=== PATIENT | male | born 1980 | race African-American/Black ===

== ENCOUNTER 2017-08-29 09:39 | Emergency (ER) | payer SELFPAY ==
[2017-08-29] MEDS: ONDANSETRON PF 4 MG/2 ML VIAL. IV (10:20)
[2017-08-29] MEDS: DICYCLOMINE 20 MG/2 ML AMPUL. IM ×2 (10:20→12:35)
[2017-08-29] MEDS: LIDO:MAALOX 1:1 20 ML SINGLE DOSE. SWSW (10:20)
[2017-08-29 10:22] LABS: BASO # 0.1 x10^3/uL (0.0-0.2); BASO % 0 % (0-3); EOS % 0 % (0-3); HEMATOCRIT 42.7 % (39.0-53.0); HEMOGLOBIN 15.1 g/dL (13.0-17.5); LYMPH # 1.6 x10^3/uL (1.0-4.8); LYMPH % 12 % (24-48); MEAN CORPUSCULAR HEMOGLOBIN 35 pg (25-35); MEAN CORPUSCULAR HGB CONC 35 g/dL (31-37); MEAN CORPUSCULAR VOLUME 98 fL (79-100); MONO # 0.4 x10^3/uL (0.0-1.1); MONO % 3 % (0-9); NEUT # 11.5 x10^3uL (1.8-7.7); NEUT % 85 % (31-73); PLATELET COUNT 183 x10^3/uL (140-400); RED BLOOD COUNT 4.36 x10^6/uL (4.30-5.70); RED CELL DISTRIBUTION WIDTH 13.6 % (11.5-14.5); WHITE BLOOD COUNT 13.5 x10^3/uL (4.0-11.0)
[2017-08-29 10:24] LABS: ADD MAN DIFF? YES
[2017-08-29 11:03] LABS: % BANDS 3 % (0-9); % LYMPHS 11 % (24-48); % MONOS 3 % (0-10); % SEGS 83 % (35-66)
[2017-08-29 11:04] LABS: PLT ESTIMATE ADEQUATE (ADEQUATE)
[2017-08-29 11:10] LABS: BILIRUBIN,URINE NEGATIVE (NEG); CLARITY,URINE CLEAR; COLOR,URINE AMBER; GLUCOSE,URINE NEGATIVE (NEG); NITRITE,URINE NEGATIVE (NEG); PROTEIN,URINE 100 mg/dL (NEG-TRACE); UROBILINOGEN,URINE 0.2 mg/dL (0.2 mg/dL)
[2017-08-29 11:12] LABS: ANION GAP 14 (6-14); BLOOD UREA NITROGEN 11 mg/dL (8-26); BUN/CREATININE RATIO 10 (6-20); CALCIUM 9.5 mg/dL (8.5-10.1); CARBON DIOXIDE 26 mmol/L (21-32); CHLORIDE 104 mmol/L (98-107); CREATININE 1.1 mg/dL (0.7-1.3); GFR 92.2; GLUCOSE 117 mg/dL (70-99); SODIUM 144 mmol/L (136-145); SQUAMOUS EPITHELIAL CELL,UR OCC /LPF
[2017-08-29 11:13] LABS: BACTERIA,URINE FEW /HPF (0-FEW); RBC,URINE 0 /HPF (0-2)
[2017-08-29 11:17] LABS: ALBUMIN 4.3 g/dL (3.4-5.0); ALBUMIN/GLOBULIN RATIO 1.3 (1.0-1.7); ALK PHOS 69 U/L (46-116); ALT (SGPT) 22 U/L (16-63); AST (SGOT) 17 U/L (15-37); LIPASE 49 U/L (73-393); MAGNESIUM 1.9 mg/dL (1.8-2.4); TOTAL BILIRUBIN 0.6 mg/dL (0.2-1.0); TOTAL PROTEIN 7.7 g/dL (6.4-8.2)
[2017-08-29] MEDS: IV NORMAL SALINE 1000ML BAG 1,000 ML IV (12:32)
[2017-08-29] MEDS: HALOPERIDOL LACTATE 5 MG/ML VIAL. IM (13:25)
[2017-08-29] MEDS: IOHEXOL 300 MG/ML 100ML VIAL. IV (13:40)
[2017-08-29] MEDS ORDERED: CONTRAST GIVEN. MC (13:45)
== END 2017-08-29 15:14 | disposition home or self-care (01) ==
LOC: ER 09:39
DX: K21.9 Gastro-esophageal reflux disease without esophagitis (principal); Z87.19 Personal history of other diseases of the digestive system; Z90.49 Acquired absence of other specified parts of digestive tract
CPT/HCPCS: 36415; 74177; 80053; 81001; 83690; 83735; 85007; 85025; 87086; 93005; 96361; 96372; 96374; 99285-25; J0500; J1630; J2405; J7030; Q9967

== ENCOUNTER 2017-11-26 09:21 | Emergency (ER) | payer SELFPAY ==
[~2017-11-26] VITALS: Ht 177.8 cm; Wt 86.2 kg
[~2017-11-26 09:21] MED LIST: DICY20TA3 PO; HYDR-971 PO; Hydrocodone/Acetaminophen PO; OMEP20TA63 PO; ONDA4TAB10 PO; ONDA4TAB7 PO
[2017-11-26] MEDS ORDERED: PROCHLORPERAZINE 10 MG/2 ML VIAL. IV ONE (09:30)
[2017-11-26] MEDS ORDERED: diphenhydrAMINE 50 MG/ML VIAL IVP ONE (09:30)
[2017-11-26] MEDS ORDERED: MORPHINE SULFATE 4 MG/ML VIAL. IV ONE ×3 (09:30→13:30)
[2017-11-26] MEDS ORDERED: FAMOTIDINE 20 MG/2 ML VIAL IVP ONE (09:30)
[2017-11-26] MEDS ORDERED: IV NORMAL SALINE 1000ML BAG 1,000 ML IV ONE ×2 (09:45→11:30)
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
[2017-11-26 11:33] LABS: BASO % 0 % (0-3); EOS % 0 % (0-3); HEMOGLOBIN 15.1 g/dL (13.0-17.5); LYMPH # 1.4 x10^3/uL (1.0-4.8); LYMPH % 11 % (24-48); MEAN CORPUSCULAR HEMOGLOBIN 33 pg (25-35); MEAN CORPUSCULAR HGB CONC 34 g/dL (31-37); MEAN CORPUSCULAR VOLUME 99 fL (79-100); MONO # 0.4 x10^3/uL (0.0-1.1); MONO % 3 % (0-9); NEUT # 11.1 x10^3uL (1.8-7.7); NEUT % 86 % (31-73); PLATELET COUNT 188 x10^3/uL (140-400); RED BLOOD COUNT 4.54 x10^6/uL (4.30-5.70); RED CELL DISTRIBUTION WIDTH 14.3 % (11.5-14.5); WHITE BLOOD COUNT 12.9 x10^3/uL (4.0-11.0)
[2017-11-26 11:45] LABS: CALCIUM 9.7 mg/dL (8.5-10.1); CREATININE 1.2 mg/dL (0.7-1.3); GFR 82.9; POTASSIUM 4.2 mmol/L (3.5-5.1)
[2017-11-26] MEDS ORDERED: IOHEXOL 300 MG/ML 100ML VIAL. IV ONE (11:45)
[2017-11-26] MEDS ORDERED: CONTRAST GIVEN. MC PRN (11:45)
[2017-11-26 11:51] LABS: ALBUMIN 4.5 g/dL (3.4-5.0); DIRECT BILIRUBIN 0.1 mg/dL (0.0-0.2); TOTAL BILIRUBIN 0.6 mg/dL (0.2-1.0)
--- NOTE | 2017-11-26 12:54 | RAD ---
CT Abdomen and Pelvis With Intravenous Contrast: History: Abdominal pain. Nausea, emesis. Comparison: CT abdomen pelvis August 29, 2017. Technique: After administration of intravenous contrast, 75 mL Omnipaque-300, CT of the abdomen and pelvis was performed. Exposure: One or more of the following individualized dose reduction techniques were utilized for this examination: 1. Automated exposure control 2. Adjustment of the mA and/or kV according to patient size 3. Use of iterative reconstruction technique Findings: Evaluation of enteric structures may be warranted by lack of oral contrast. Liver, spleen, kidneys, gallbladder, and bilateral adrenal glands are unremarkable. Bilateral kidneys enhance symmetrically. No bowel obstruction or inflammation is identified. Appendix is absent. Urinary bladder is unremarkable. No free air or free fluid is seen in the abdomen or pelvis. Impression: 1. No acute abnormality identified in the abdomen or pelvis. Electronically signed by: Niko Bowling MD (11/26/2017 12:50 PM) [facility] [place]
[2017-11-26 13:07] LABS: BILIRUBIN,URINE NEGATIVE (NEG); CLARITY,URINE CLEAR; COLOR,URINE YELLOW; NITRITE,URINE NEGATIVE (NEG); PH,URINE 8.5; PROTEIN,URINE 30 mg/dL (NEG-TRACE)
[2017-11-26 13:15] LABS: % BANDS 4 % (0-9); % BASOS 1 % (0-3); % LYMPHS 6 % (24-48); % MONOS 2 % (0-10); % SEGS 87 % (35-66); PLT ESTIMATE ADEQUATE (ADEQUATE)
[2017-11-26] MEDS ORDERED: SUCR1TAB35 PO (13:21)
[2017-11-26] MEDS ORDERED: METO10TA81 PO (13:21)
[2017-11-26] MEDS ORDERED: HYDR-971 PO (13:21)
[2017-11-26 13:26] LABS: BACTERIA,URINE FEW /HPF (0-FEW); SQUAMOUS EPITHELIAL CELL,UR OCC /LPF
[2017-11-26 13:27] LABS: RBC,URINE 0 /HPF (0-2)
[2017-11-26 13:29] VITALS: BP 119/58
== END 2017-11-26 14:00 | disposition home or self-care (01) ==
LOC: ER 09:21
DX: R11.2 Nausea with vomiting, unspecified (principal); R10.13 Epigastric pain; K21.9 Gastro-esophageal reflux disease without esophagitis; Z90.89 Acquired absence of other organs
CPT/HCPCS: 36415; 74177; 80048; 80076; 81001; 83690; 85007; 85025; 96361; 96374; 96375; 96376; 99285; J0780; J1200; J2270; J7030; Q9967; S0028

== ENCOUNTER 2018-01-03 11:01 | Emergency (ER) | payer SELFPAY ==
[~2018-01-03] VITALS: Ht 177.8 cm; Wt 86.2 kg
[~2018-01-03 11:01] MED LIST changes: +METO10TA81 PO; +SUCR1TAB35 PO
[2018-01-03] MEDS ORDERED: ONDANSETRON PF 4 MG/2 ML VIAL. IV ONE (11:45)
[2018-01-03] MEDS ORDERED: IV NORMAL SALINE 1000ML BAG 1,000 ML IV ONE (11:45)
[2018-01-03] MEDS ORDERED: fentaNYL PF VIAL 100 MCG/2 ML VIAL IV ONE (11:45)
[2018-01-03 12:26] LABS: CALCIUM 10.4 mg/dL (8.5-10.1); CREATININE 1.2 mg/dL (0.7-1.3); GFR 82.9; POTASSIUM 3.8 mmol/L (3.5-5.1)
[2018-01-03 12:29] LABS: BASO # 0.1 x10^3/uL (0.0-0.2); BASO % 1 % (0-3); EOS % 0 % (0-3); HEMATOCRIT 45.4 % (39.0-53.0); HEMOGLOBIN 15.5 g/dL (13.0-17.5); LYMPH # 1.5 x10^3/uL (1.0-4.8); LYMPH % 9 % (24-48); MEAN CORPUSCULAR HEMOGLOBIN 34 pg (25-35); MEAN CORPUSCULAR HGB CONC 34 g/dL (31-37); MEAN CORPUSCULAR VOLUME 98 fL (79-100); MONO # 0.7 x10^3/uL (0.0-1.1); MONO % 4 % (0-9); NEUT # 13.6 x10^3uL (1.8-7.7); NEUT % 86 % (31-73); PLATELET COUNT 179 x10^3/uL (140-400); RED BLOOD COUNT 4.63 x10^6/uL (4.30-5.70); RED CELL DISTRIBUTION WIDTH 13.8 % (11.5-14.5); WHITE BLOOD COUNT 15.8 x10^3/uL (4.0-11.0)
--- NOTE | 2018-01-03 12:30 | PHYS DOC ---
Past Medical History Past Medical History: GERD, Other Additional Past Medical Histor: gastric ulcers Past Surgical History: Appendectomy Alcohol Use: None Drug Use: Marijuana Adult General Chief Complaint Chief Complaint: NAUSEA/VOMITING/DIARRHA HPI HPI 37-year-old male presents to ER with complaints of N/V which started last night reporting he has had multiple episodes of vomiting yesterday and today. Patient denies any fever or chills, diarrhea, or urinary symptoms. Patient reports he was in the ER 2 weeks ago and diagnosed with stomach ulcers. Patient reports he is having lower abdominal pain since yesterday with increased pain today. Patient denies any bloody or tarry dark stools. Per patient he was seen in the ER on 11/26 and had labs and a CT done. Per his records he was diagnosed with gastritis and sent home on Reglan, [place], sucralfate. He was informed to increase Pepcid to BID. Pt reports he only has the sucralfate left at home. Review of Systems Review of Systems Constitutional: Denies fever or chills. Denies fatigue Eyes: Denies change in visual acuity, redness, or eye pain [] HENT: Denies nasal congestion or sore throat [] Respiratory: Denies cough or shortness of breath [] Cardiovascular: Denies chest pain or palpitations GI: Reports abdominal pain, nausea, vomiting. Denies bloody stools or diarrhea [ ] : Denies dysuria or hematuria. Denies incontinence Musculoskeletal: Denies back/neck pain or joint pain [] Integument: Denies rash or skin lesions [] Neurologic: Denies headache, focal weakness or sensory changes [] All other systems were reviewed and found to be within normal limits, except as documented in this note. Current Medications Current Medications Current Medications Medications (Trade) Dose Ordered Sig/Deny Start Time Stop Time Status Last Admin Dose Admin Dicyclomine HCl (Bentyl) 20 mg 1X ONCE 01/03/18 12:45 01/03/18 12:46 DC 01/03/18 12:56 20 MG Famotidine (Pepcid Vial) 20 mg 1X ONCE 01/03/18 13:45 01/03/18 13:46 DC 01/03/18 13:49 20 MG Fentanyl Citrate (Fentanyl 2ml Vial) 50 mcg 1X ONCE 01/03/18 11:45 01/03/18 11:47 DC 01/03/18 12:18 50 MCG Morphine Sulfate (Morphine Sulfate) 4 mg 1X ONCE 01/03/18 13:45 01/03/18 13:46 DC 01/03/18 13:49 4 MG Ondansetron HCl (Zofran) 4 mg 1X ONCE 01/03/18 11:45 01/03/18 11:47 DC 01/03/18 12:18 4 MG Sodium Chloride 1,000 ml @ 1,000 mls/hr 1X ONCE 01/03/18 11:45 01/03/18 12:44 DC 01/03/18 12:18 1,000 MLS/HR Allergies Allergies Allergies Coded Allergies Type Severity Reaction Last Updated Verified No Known Drug Allergies 06/30/14 No Physical Exam Physical Exam Constitutional: Well developed, well nourished, mild distress on initial exam with patient clutching mid abdomen-he is anxious and at times flails around on ER cart, non-toxic appearance. [] HENT: Normocephalic, atraumatic, bilateral ears normal, mucous membranes pink/ moist, no oral exudates, nose normal. [] Eyes: PERRLA, no nystagmus, conjunctiva normal, no discharge. [] Neck: Normal range of motion, no tenderness, supple, no stridor. [] Cardiovascular:Heart rate regular rhythm, no murmur [] Lungs & Thorax: Bilateral breath sounds clear to auscultation. Resp. equal/ nonlabored Abdomen: Bowel sounds normal, soft/nondistended, diffuse tenderness in mid umbilical and lower abdomen with no focal area or rebound tenderness, no masses Skin: Warm, dry, no erythema, no rash. [] Back: No tenderness, no CVA tenderness. [] Extremities: No tenderness, no cyanosis, no clubbing, ROM intact, no edema. [] Neurologic: Alert and oriented X 3, normal motor function, normal sensory function, no focal deficits noted. [] Psychologic: Affect normal, judgement normal, mood normal. [] Current Patient Data Vital Signs Vital Signs Date Time Temp Pulse Resp B/P (MAP) Pulse Ox O2 Delivery O2 Flow Rate FiO2 01/03/18 13:15 68 134/63 (86) 100 Room Air 01/03/18 11:10 98.5 22 98.5 Lab Values Laboratory Tests Test 01/03/18 12:05 01/03/18 12:30 White Blood Count 15.8 x10^3/uL (4.0-11.0) H Red Blood Count 4.63 x10^6/uL (4.30-5.70) Hemoglobin 15.5 g/dL (13.0-17.5) Hematocrit 45.4 % (39.0-53.0) Mean Corpuscular Volume 98 fL (79-100) Mean Corpuscular Hemoglobin 34 pg (25-35) Mean Corpuscular Hemoglobin Concent 34 g/dL (31-37) Red Cell Distribution Width 13.8 % (11.5-14.5) Platelet Count 179 x10^3/uL (140-400) Neutrophils (%) (Auto) 86 % (31-73) H Lymphocytes (%) (Auto) 9 % (24-48) L Monocytes (%) (Auto) 4 % (0-9) Eosinophils (%) (Auto) 0 % (0-3) Basophils (%) (Auto) 1 % (0-3) Neutrophils # (Auto) 13.6 x10^3uL (1.8-7.7) H Lymphocytes # (Auto) 1.5 x10^3/uL (1.0-4.8) Monocytes # (Auto) 0.7 x10^3/uL (0.0-1.1) Eosinophils # (Auto) 0.0 x10^3/uL (0.0-0.7) Basophils # (Auto) 0.1 x10^3/uL (0.0-0.2) Segmented Neutrophils % 92 % (35-66) H Lymphocytes % 5 % (24-48) L Monocytes % 3 % (0-10) Platelet Estimate Adequate (ADEQUATE) Sodium Level 142 mmol/L (136-145) Potassium Level 3.8 mmol/L (3.5-5.1) Chloride Level 103 mmol/L (98-107) Carbon Dioxide Level 24 mmol/L (21-32) Anion Gap 15 (6-14) H Blood Urea Nitrogen 13 mg/dL (8-26) Creatinine 1.2 mg/dL (0.7-1.3) Estimated GFR (Cockcroft-Gault) 82.9 BUN/Creatinine Ratio 11 (6-20) Glucose Level 118 mg/dL (70-99) H Calcium Level 10.4 mg/dL (8.5-10.1) H Magnesium Level 1.6 mg/dL (1.8-2.4) L Total Bilirubin 0.6 mg/dL (0.2-1.0) Aspartate Amino Transferase (AST) 16 U/L (15-37) Alanine Aminotransferase (ALT) 26 U/L (16-63) Alkaline Phosphatase 73 U/L (46-116) Total Protein 8.0 g/dL (6.4-8.2) Albumin 4.5 g/dL (3.4-5.0) Albumin/Globulin Ratio 1.3 (1.0-1.7) Lipase 73 U/L (73-393) Urine Opiates Screen Neg (NEG) Urine Methadone Screen Neg (NEG) Urine Barbiturates Neg (NEG) Urine Phencyclidine Screen Neg (NEG) Urine Amphetamine/Methamphetamine Neg (NEG) Urine Benzodiazepines Screen Neg (NEG) Urine Cocaine Screen Neg (NEG) Urine Cannabinoids Screen Pos (NEG) Urine Ethyl Alcohol Neg (NEG) Laboratory Tests 01/03/18 12:05 Laboratory Tests 01/03/18 12:05 EKG EKG [] Radiology/Procedures Radiology/Procedures [] Course & Med Decision Making Course & Med Decision Making 1325: On reevaluation patient reports he has had some improvement in pain and he has had no additional vomiting episodes. Discussed positive cannabinoids on his UDS and cyclic vomiting and patient is aware of this diagnosis as he has been dx'd in past with this. Discussed test results with patient with WBCs elevated 15.8 no bands- which may be r/t stress as pt was actively vomiting and anxious on initial exam/lab draw. Pt had normal limits lipase at 73. Patient was given IV fluids and doses of morphine, Bentyl, Zofran, and Pepcid. Patient reports he still has sucralfate at home but is out of his other medications that were prescribed during last ER visit. Patient requesting pain medication for home discharge will provide prescription for Bentyl with education that patient needs to avoid cannabinoids and follow-up with GI for further care. Will provide prescription for Reglan and patient was advised during his previous ER visit to increase his Pepcid dose to twice a day. Will provide pt with GI referral info with discharge paperwork. Discharge instructions were discussed and education provided on signs and symptoms to return to ER for. Deon Disclaimer Dragon Disclaimer This electronic medical record was generated, in whole or in part, using a voice recognition dictation system. Departure Departure Impression: Primary Impression: Abdominal pain Additional Impression: Nausea & vomiting Disposition: 01 HOME, SELF-CARE Condition: STABLE Referrals: NO PCP (PCP) ANIL MEHTA MD Gastrointestinal doctor to follow-up with Patient Instructions: Abdominal Pain, Nausea and Vomiting Additional Instructions: With ongoing gastrointestinal issues you should follow-up with a GI doctor in the next 2-3 days. Avoid spicy or acidic food. Avoid marijuana use. Scripts Dicyclomine Hcl (DICYCLOMINE HCL) 10 Mg Capsule 10 MG PO QID PRN for abdominal pain, #12 CAP 0 Refills Prov: PREMA ESPINOZA APRN 01/03/18 Metoclopramide Hcl (REGLAN) 10 Mg Tablet 10 MG PO BIDAC, #14 TAB 0 Refills Prov: PREMA ESPINOZA APRN 01/03/18 Problem Qualifiers PREMA ESPINOZA APRN Jan 03, 2018 12:30
[2018-01-03 12:33] LABS: ALBUMIN 4.5 g/dL (3.4-5.0); ALBUMIN/GLOBULIN RATIO 1.3 (1.0-1.7); MAGNESIUM 1.6 mg/dL (1.8-2.4); TOTAL BILIRUBIN 0.6 mg/dL (0.2-1.0)
[2018-01-03] MEDS ORDERED: MORPHINE SULFATE 4 MG/ML VIAL. IV ONE ×2 (12:45→13:45)
[2018-01-03] MEDS ORDERED: DICYCLOMINE 20 MG/2 ML AMPUL. IM ONE (12:45)
[2018-01-03 12:48] LABS: BARBITURATES NEG (NEG); BENZODIAZEPINES NEG (NEG); CANNABINOIDS POS (NEG); COCAINE NEG (NEG); METHADONE NEG (NEG); OPIATES NEG (NEG); PHENCYCLIDINE NEG (NEG)
[2018-01-03 12:50] LABS: AMPHETAMINE/METHAMPHETAMINE NEG (NEG)
[2018-01-03 13:15] VITALS: BP 134/63
[2018-01-03] MEDS ORDERED: FAMOTIDINE 20 MG/2 ML VIAL IVP ONE (13:45)
[2018-01-03] MEDS ORDERED: DICY10CA3 PO (13:59)
[2018-01-03] MEDS ORDERED: METO10TA81 PO (13:59)
[2018-01-03 14:02] LABS: % LYMPHS 5 % (24-48); % MONOS 3 % (0-10); % SEGS 92 % (35-66)
[2018-01-03 14:03] LABS: PLT ESTIMATE ADEQUATE (ADEQUATE)
== END 2018-01-03 14:24 | disposition home or self-care (01) ==
LOC: ER 11:01
DX: R11.2 Nausea with vomiting, unspecified (principal); R10.31 Right lower quadrant pain; R10.32 Left lower quadrant pain; R10.33 Periumbilical pain; K21.9 Gastro-esophageal reflux disease without esophagitis; Z90.89 Acquired absence of other organs
CPT/HCPCS: 36415; 80053; 80307; 83690; 83735; 85007; 85025; 96361; 96372; 96374; 96375; 96376; 99285; J0500; J2270; J2405; J3010; J7030; S0028; G0479

== ENCOUNTER 2018-04-30 10:09 | Emergency (ER) | payer SELFPAY ==
[~2018-04-30] VITALS: Ht 177.8 cm; Wt 86.2 kg
[~2018-04-30 10:09] MED LIST changes: +CAPS42.510 TP; +DICY10CA3 PO; +HYDR-3164 PO; -HYDR-971 PO; +HYOS0.1264 PO; +PROC10TA57 PO
[2018-04-30] MEDS ORDERED: IV NORMAL SALINE 1000ML BAG 1,000 ML IV ONE ×2 (11:30→13:15)
--- NOTE | 2018-04-30 12:14 | PHYS DOC ---
Past Medical History Past Medical History: GERD, Other Additional Past Medical Histor: gastric ulcers Past Surgical History: Appendectomy Smoking: Cigarettes Alcohol Use: None Drug Use: Marijuana Adult General Chief Complaint Chief Complaint: ABDOMINAL PAIN HPI HPI Patient is a 37-year-old female who presents to the emergency department for evaluation. The patient was seen in the emergency department about 2 days ago, for abdominal pain and vomiting, and has had similar, almost monthly episodes of the same. He states he has not been able to hold on the medication which he was prescribed after his last ER visit. He has been seen in this emergency department several times over the past few months for similar symptoms. He does not currently have a GI doctor but states he has a history of ulcers. His emesis has been nonbloody. He does have a history of marijuana use, but states he has not used since prior to his prior ER visit. He has not had any diarrhea, or black or bloody stools. His abdominal pain is generalized. There are no alleviating or exacerbating factors to the patient's symptoms otherwise. Review of Systems Review of Systems Constitutional: Denies fever or chills [] Eyes: Denies change in visual acuity, redness, or eye pain [] HENT: Denies nasal congestion or sore throat [] Respiratory: Denies cough or shortness of breath [] Cardiovascular: The patient denies any shortness of breath, chest pain, palpitations, or orthopnea [] GI: No additional information not addressed in HPI [] : Denies dysuria or hematuria [] Musculoskeletal: Denies back pain or joint pain [] Integument: Denies rash or skin lesions [] Neurologic: Denies headache, focal weakness or sensory changes [] Endocrine: Denies polyuria or polydipsia [] All other systems were reviewed and found to be within normal limits, except as documented in this note. Current Medications Current Medications Current Medications Medications (Trade) Dose Ordered Sig/Deny Start Time Stop Time Status Last Admin Dose Admin Haloperidol Lactate (Haldol Inj) 5 mg 1X ONCE 04/30/18 12:30 04/30/18 12:31 DC 04/30/18 12:20 5 MG Info (CONTRAST GIVEN -- Rx MONITORING) 1 each PRN DAILY PRN 04/30/18 12:30 05/02/18 12:29 Iohexol (Omnipaque 300 Mg/ml) 75 ml 1X ONCE 04/30/18 12:30 04/30/18 12:31 DC 04/30/18 12:42 75 ML Lorazepam (Ativan) 1 mg 1X ONCE 04/30/18 12:30 04/30/18 12:31 DC 04/30/18 12:21 1 MG Sodium Chloride 1,000 ml @ 1,000 mls/hr 1X ONCE 04/30/18 13:15 04/30/18 14:14 04/30/18 13:09 1,000 MLS/HR Allergies Allergies Allergies Coded Allergies Type Severity Reaction Last Updated Verified No Known Drug Allergies 06/30/14 No Physical Exam Physical Exam PHYSICAL EXAM: CONSTITUTIONAL: Well developed, well nourished HEAD: normocephalic, atraumatic EENT: PERRL, EOMI. Conjunctivae normal color, sclerae non-icteric; moist mucous membranes. NECK: Supple, non-tender; no meningismus. LUNGS: Lungs CTA, breathing even and unlabored. Normal air movement. HEART: Regular rate and rhythm, no murmur CHEST: No deformity; non-tender ABDOMEN: The abdomen is soft, there is mild tenderness to palpation, most prominent in the epigastric area, and right midabdomen, Valdivia sign is absent, there is no rebound or guarding, bowel sounds are present, the remainder the abdomen is soft and non-tender, no masses or bruits. EXTREM: Normal ROM; no deformity, no calf tenderness. Normal pulses palpable in all extremities. There is no pedal edema. SKIN: No rash; no diaphoresis NEURO: Alert; normal speech and cognition; CN's grossly intact; strength grossly intact without focal deficit. BACK: No CVA TTP. Current Patient Data Vital Signs Vital Signs Date Time Temp Pulse Resp B/P (MAP) Pulse Ox O2 Delivery O2 Flow Rate FiO2 04/30/18 10:47 99.1 69 24 140/78 (98) 100 Room Air 99.1 Lab Values Laboratory Tests Test 04/30/18 12:20 04/30/18 13:15 Urine Collection Type Unknown Urine Color Yellow Urine Clarity Clear Urine pH 8.5 Urine Specific [place] 1.025 Urine Protein Negative mg/dL (NEG-TRACE) Urine Glucose (UA) Negative mg/dL (NEG) Urine Ketones (Stick) >=80 mg/dL (NEG) Urine Blood Negative (NEG) Urine Nitrite Negative (NEG) Urine Bilirubin Negative (NEG) Urine Urobilinogen Dipstick 1.0 mg/dL (0.2 mg/dL) Urine Leukocyte Esterase Negative (NEG) Urine RBC 0 /HPF (0-2) Urine WBC 0 /HPF (0-4) Urine Bacteria 0 /HPF (0-FEW) Urine Mucus Slight /LPF Urine Opiates Screen Neg (NEG) Urine Methadone Screen Neg (NEG) Urine Barbiturates Neg (NEG) Urine Phencyclidine Screen Neg (NEG) Urine Amphetamine/Methamphetamine Neg (NEG) Urine Benzodiazepines Screen Neg (NEG) Urine Cocaine Screen Neg (NEG) Urine Cannabinoids Screen Pos (NEG) Urine Ethyl Alcohol Neg (NEG) White Blood Count 8.2 x10^3/uL (4.0-11.0) Red Blood Count 4.18 x10^6/uL (4.30-5.70) L Hemoglobin 13.6 g/dL (13.0-17.5) Hematocrit 41.1 % (39.0-53.0) Mean Corpuscular Volume 98 fL (79-100) Mean Corpuscular Hemoglobin 33 pg (25-35) Mean Corpuscular Hemoglobin Concent 33 g/dL (31-37) Red Cell Distribution Width 13.6 % (11.5-14.5) Platelet Count 159 x10^3/uL (140-400) Neutrophils (%) (Auto) 72 % (31-73) Lymphocytes (%) (Auto) 19 % (24-48) L Monocytes (%) (Auto) 9 % (0-9) Eosinophils (%) (Auto) 0 % (0-3) Basophils (%) (Auto) 0 % (0-3) Neutrophils # (Auto) 5.9 x10^3uL (1.8-7.7) Lymphocytes # (Auto) 1.5 x10^3/uL (1.0-4.8) Monocytes # (Auto) 0.7 x10^3/uL (0.0-1.1) Eosinophils # (Auto) 0.0 x10^3/uL (0.0-0.7) Basophils # (Auto) 0.0 x10^3/uL (0.0-0.2) Sodium Level 137 mmol/L (136-145) Potassium Level 3.4 mmol/L (3.5-5.1) L Chloride Level 103 mmol/L (98-107) Carbon Dioxide Level 24 mmol/L (21-32) Anion Gap 10 (6-14) Blood Urea Nitrogen 11 mg/dL (8-26) Creatinine 0.9 mg/dL (0.7-1.3) Estimated GFR (Cockcroft-Gault) 115.5 BUN/Creatinine Ratio 12 (6-20) Glucose Level 103 mg/dL (70-99) H Calcium Level 8.6 mg/dL (8.5-10.1) Total Bilirubin 0.7 mg/dL (0.2-1.0) Aspartate Amino Transferase (AST) 16 U/L (15-37) Alanine Aminotransferase (ALT) 23 U/L (16-63) Alkaline Phosphatase 67 U/L (46-116) Total Protein 6.4 g/dL (6.4-8.2) Albumin 3.4 g/dL (3.4-5.0) Albumin/Globulin Ratio 1.1 (1.0-1.7) Lipase 66 U/L (73-393) L Laboratory Tests 04/30/18 13:15 Laboratory Tests 04/30/18 13:15 EKG EKG [Normal sinus rhythm a rate of 72 beats for minute, normal axis, normal intervals. There are no acute ischemic ST/T changes.] Radiology/Procedures Radiology/Procedures [PROCEDURE: CT ABD PELV W/ IV CONTRST ONLY CT ABD PELV W/ IV CONTRST ONLY Indication: Abdominal pain. Nausea and vomiting. Exposure: One or more of the following individualized dose reduction techniques were utilized for this examination: 1. Automated exposure control 2. Adjustment of the mA and/or kV according to patient size 3. Use of iterative reconstruction technique. Comparison: November 26, 2017 Contrast: Intravenous contrast was given. No oral contrast per request. FINDINGS: Lower thorax: Lung bases are clear. Liver: Area of hypodensity in the anterior liver measures about 2 cm, at the falciform ligament, a typical location for focal fatty deposition. This was seen on prior studies although slightly more prominent today. Spleen: Unremarkable Pancreas: Unremarkable Adrenals: No evidence of mass. Kidneys: No obvious mass. Urinary tracts: No hydronephrosis. Gallbladder: No calcified stone Lymph nodes: No significant enlargement Vessels: Aorta is nonaneurysmal. GI tract: Apparent mild wall thickening of the descending and sigmoid colon's, may just be due to lack of distention. No evidence of bowel obstruction. There are surgical clips in the right abdomen. Appendix is not clearly seen. Reproductive organs:No evidence of mass. Urinary bladder: Mild wall thickening, could be due to lack of distention. Peritoneum: No evidence of pneumoperitoneum. No free fluid. Abdominal wall:Unremarkable Spine: Transitional anatomy at the lumbosacral junction. Bones: No destructive process identified. External Soft Tissue: No acute findings. IMPRESSION: 1. No definite acute abnormality. 2. Wall thickening of the descending and sigmoid colon may just be due to the lack of distention or oral contrast, but correlate for colitis. 3. Focal hypodensity in the anterior liver at the region of the falciform ligament is commonly due to fatty deposition. Note this does appear slightly more prominent than on prior studies, therefore further evaluation such as with MRI could be of benefit.] Course & Med Decision Making Course & Med Decision Making Pertinent Labs and Imaging studies reviewed. (See chart for details) [2:10 PM: The patient's condition remains stable.] He is feeling significantly better after being given an medication. He states he has been having a lot of stress in his relationship because of health problems in a family member. He has not had any further vomiting since being given medication. Out discussed importance of close outpatient follow-up with GI, the need for continuing his PPI, I will give him an ODT and liver trimmer medication, and we discussed return precautions in detail. The importance of marijuana abscess was discussed as well. Did discuss the CT findings with the patient and the need for further close outpatient follow-up. Clinical suspicion for colitis is very low. Dragon Disclaimer Dragon Disclaimer This electronic medical record was generated, in whole or in part, using a voice recognition dictation system. Departure Departure Impression: Primary Impression: Nausea & vomiting Additional Impression: Abdominal pain Disposition: 01 HOME, SELF-CARE Condition: STABLE Referrals: ANIL MEHTA MD Patient Instructions: Abdominal Pain, Cyclic Vomiting Syndrome, Nausea and Vomiting Additional Instructions: Further evaluation and it support engineer for your symptoms is critically important. Please call to schedule appointment as instructed. There was a small spot on your liver that showed up on the CT scan today which would require further follow-up with an outpatient MRI. Please contact your primary care provider or the it support engineer as scheduled follow-up. Stopping the use of marijuana may help improve her reduce your symptoms. Scripts Ondansetron Hcl (ZOFRAN) 4 Mg Tablet 1 TAB PO Q6HRS PRN for NAUSEA/VOMITING, #20 TAB Please dispense oral dissolving tablets. Prov: DEBI PEREA MD 04/30/18 Problem Qualifiers DEBI PEREA MD Apr 30, 2018 12:14
[2018-04-30] MEDS ORDERED: IOHEXOL 300 MG/ML 100ML VIAL. IV ONE (12:30)
[2018-04-30] MEDS ORDERED: CONTRAST GIVEN. MC PRN (12:30)
[2018-04-30] MEDS ORDERED: HALOPERIDOL LACTATE 5 MG/ML VIAL. IVP ONE (12:30)
[2018-04-30 12:34] LABS: BILIRUBIN,URINE NEGATIVE (NEG); CLARITY,URINE CLEAR; COLOR,URINE YELLOW; NITRITE,URINE NEGATIVE (NEG); PH,URINE 8.5; PROTEIN,URINE NEGATIVE (NEG-TRACE)
[2018-04-30 12:41] LABS: BACTERIA,URINE 0 /HPF (0-FEW); BARBITURATES NEG (NEG); BENZODIAZEPINES NEG (NEG); CANNABINOIDS POS (NEG); COCAINE NEG (NEG); METHADONE NEG (NEG); OPIATES NEG (NEG); PHENCYCLIDINE NEG (NEG); RBC,URINE 0 /HPF (0-2); WBC,URINE 0 /HPF (0-4)
[2018-04-30 12:45] LABS: AMPHETAMINE/METHAMPHETAMINE NEG (NEG)
--- NOTE | 2018-04-30 12:56 | EKG ---
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
--- NOTE | 2018-04-30 13:07 | RAD ---
CT ABD PELV W/ IV CONTRST ONLY Indication: Abdominal pain. Nausea and vomiting. Exposure: One or more of the following individualized dose reduction techniques were utilized for this examination: 1. Automated exposure control 2. Adjustment of the mA and/or kV according to patient size 3. Use of iterative reconstruction technique. Comparison: November 26, 2017 Contrast: Intravenous contrast was given. No oral contrast per request. FINDINGS: Lower thorax: Lung bases are clear. Liver: Area of hypodensity in the anterior liver measures about 2 cm, at the falciform ligament, a typical location for focal fatty deposition. This was seen on prior studies although slightly more prominent today. Spleen: Unremarkable Pancreas: Unremarkable Adrenals: No evidence of mass. Kidneys: No obvious mass. Urinary tracts: No hydronephrosis. Gallbladder: No calcified stone Lymph nodes: No significant enlargement Vessels: Aorta is nonaneurysmal. GI tract: Apparent mild wall thickening of the descending and sigmoid colon's, may just be due to lack of distention. No evidence of bowel obstruction. There are surgical clips in the right abdomen. Appendix is not clearly seen. Reproductive organs:No evidence of mass. Urinary bladder: Mild wall thickening, could be due to lack of distention. Peritoneum: No evidence of pneumoperitoneum. No free fluid. Abdominal wall:Unremarkable Spine: Transitional anatomy at the lumbosacral junction. Bones: No destructive process identified. External Soft Tissue: No acute findings. IMPRESSION: 1. No definite acute abnormality. 2. Wall thickening of the descending and sigmoid colon may just be due to the lack of distention or oral contrast, but correlate for colitis. 3. Focal hypodensity in the anterior liver at the region of the falciform ligament is commonly due to fatty deposition. Note this does appear slightly more prominent than on prior studies, therefore further evaluation such as with MRI could be of benefit. Electronically signed by: Niko Webb MD (04/30/2018 1:02 PM) [id number]
[2018-04-30 13:24] LABS: BASO % 0 % (0-3); EOS % 0 % (0-3); HEMATOCRIT 41.1 % (39.0-53.0); HEMOGLOBIN 13.6 g/dL (13.0-17.5); LYMPH # 1.5 x10^3/uL (1.0-4.8); LYMPH % 19 % (24-48); MEAN CORPUSCULAR HEMOGLOBIN 33 pg (25-35); MEAN CORPUSCULAR HGB CONC 33 g/dL (31-37); MEAN CORPUSCULAR VOLUME 98 fL (79-100); MONO # 0.7 x10^3/uL (0.0-1.1); MONO % 9 % (0-9); NEUT # 5.9 x10^3uL (1.8-7.7); NEUT % 72 % (31-73); PLATELET COUNT 159 x10^3/uL (140-400); RED BLOOD COUNT 4.18 x10^6/uL (4.30-5.70); RED CELL DISTRIBUTION WIDTH 13.6 % (11.5-14.5); WHITE BLOOD COUNT 8.2 x10^3/uL (4.0-11.0)
[2018-04-30 13:32] LABS: CALCIUM 8.6 mg/dL (8.5-10.1); CREATININE 0.9 mg/dL (0.7-1.3); GFR 115.5; POTASSIUM 3.4 mmol/L (3.5-5.1)
[2018-04-30 13:38] LABS: ALBUMIN 3.4 g/dL (3.4-5.0); ALBUMIN/GLOBULIN RATIO 1.1 (1.0-1.7); TOTAL BILIRUBIN 0.7 mg/dL (0.2-1.0); TOTAL PROTEIN 6.4 g/dL (6.4-8.2)
[2018-04-30 14:20] VITALS: BP 134/84
[2018-04-30] MEDS ORDERED: ONDA4TAB7 PO (14:26)
== END 2018-04-30 15:14 | disposition home or self-care (01) ==
LOC: ER 10:09
DX: R11.2 Nausea with vomiting, unspecified (principal); R10.84 Generalized abdominal pain; K21.9 Gastro-esophageal reflux disease without esophagitis; F17.210 Nicotine dependence, cigarettes, uncomplicated; F12.20 Cannabis dependence, uncomplicated; Z90.89 Acquired absence of other organs
CPT/HCPCS: 36415; 74177; 80053; 80307; 81001; 83690; 85025; 93005; 96361; 96374; 96375; 99284; J1630; J2060; J7030; Q9967

== ENCOUNTER 2018-07-29 20:21 | Emergency (ER) | payer SELFPAY ==
[~2018-07-29] VITALS: Ht 180.3 cm; Wt 86.2 kg
[~2018-07-29 20:21] MED LIST changes: -CAPS42.510 TP; +CAPS42.513 TP; +LANS15CA78 PO
[2018-07-29] MEDS ORDERED: IV NORMAL SALINE 1000ML BAG 1,000 ML IV SCH (21:08)
[2018-07-29] MEDS ORDERED: fentaNYL PF VIAL 100 MCG/2 ML VIAL IV PRN (21:15)
[2018-07-29] MEDS ORDERED: PANTOPRAZOLE IV PUSH 40 MG VIAL. IVP ONE (21:45)
[2018-07-29] MEDS ORDERED: ONDANSETRON PF 4 MG/2 ML VIAL. IV ONE (21:45)
[2018-07-29 21:49] LABS: BASO % 0 % (0-3); EOS % 0 % (0-3); HEMATOCRIT 48.4 % (39.0-53.0); HEMOGLOBIN 15.7 g/dL (13.0-17.5); LYMPH # 1.7 x10^3/uL (1.0-4.8); LYMPH % 14 % (24-48); MEAN CORPUSCULAR HEMOGLOBIN 32 pg (25-35); MEAN CORPUSCULAR HGB CONC 32 g/dL (31-37); MEAN CORPUSCULAR VOLUME 100 fL (79-100); MONO # 0.3 x10^3/uL (0.0-1.1); MONO % 3 % (0-9); NEUT % 83 % (31-73); PLATELET COUNT 177 x10^3/uL (140-400); RED BLOOD COUNT 4.86 x10^6/uL (4.30-5.70); RED CELL DISTRIBUTION WIDTH 14.3 % (11.5-14.5)
[2018-07-29 22:03] LABS: CALCIUM 10.4 mg/dL (8.5-10.1); CREATININE 1.3 mg/dL (0.7-1.3); GFR 75.6; POTASSIUM 3.7 mmol/L (3.5-5.1)
[2018-07-29 22:08] LABS: ALBUMIN 4.7 g/dL (3.4-5.0); ALBUMIN/GLOBULIN RATIO 1.3 (1.0-1.7); TOTAL BILIRUBIN 0.7 mg/dL (0.2-1.0); TOTAL PROTEIN 8.3 g/dL (6.4-8.2)
[2018-07-29 22:13] VITALS: BP 124/60
[2018-07-29] MEDS ORDERED: METOCLOPRAMIDE HCL 10 MG/2 ML VIAL. IV ONE (22:15)
[2018-07-29] MEDS ORDERED: diphenhydrAMINE 50 MG/ML VIAL IVP ONE (22:15)
[2018-07-29] MEDS ORDERED: MORPHINE SULFATE 4 MG/ML VIAL. IV ONE (22:15)
[2018-07-29] MEDS ORDERED: CONTRAST GIVEN. MC PRN (22:30)
[2018-07-29] MEDS ORDERED: IOHEXOL 300 MG/ML 100ML VIAL. IV ONE (22:30)
--- NOTE | 2018-07-29 22:47 | RAD ---
EXAM: Abdomen and pelvis CT with intravenous contrast. HISTORY: Pain. Ulcer. TECHNIQUE: Computed tomographic images of the abdomen and pelvis were obtained following the administration of 75 cc Omnipaque 300 intravenous contrast. Multiplanar reformatting was performed. COMPARISON: 04/30/2018. FINDINGS: Evaluation of the lower thorax demonstrates no infiltrate or pleural effusion. The heart is normal in size. No suspicious hepatic lesion is seen. There is mild fatty infiltration of the liver along the falciform ligament. The gallbladder, pancreas, spleen and adrenal glands are unremarkable. The kidneys are unremarkable. The appendix is surgically absent. There is mild mucosal thickening involving the colon likely due to relative under distention. There is no convincing pericolonic stranding to suggest colitis. There is no lymphadenopathy. There is gastric wall thickening likely due to relative under distention. The bladder is unremarkable. There is an incidental transitional lumbosacral segment. IMPRESSION: 1. Gastric wall thickening. This is likely due to underdistention. Given a history of ulcers, the possibility of gastritis not excluded. 2. Mild colonic wall thickening likely due to underdistention. There is no convincing acute colitis. Electronically signed by: Jackie Oseguera MD (07/29/2018 10:44 PM) [facility]
[2018-07-29] MEDS ORDERED: TRAM50TA PO (22:56)
[2018-07-29] MEDS ORDERED: OMEP40CA5 PO (22:56)
--- NOTE | 2018-07-29 22:56 | PHYS DOC ---
Past Medical History Past Medical History: GERD, Other Additional Past Medical Histor: gastric ulcers Past Surgical History: Appendectomy Alcohol Use: None Drug Use: Marijuana Adult General Chief Complaint Chief Complaint: NAUSEA/VOMITING/DIARRHA HPI HPI Patient is a 37-year-old male who presents with complaint of upper abdominal pain with nausea and vomiting. Patient states he has a history of stomach ulcers and thinks that his ulcers are acting up due to a lot of anxiety in his life right now. He rates pain at a 9 out of 10. He denies any radiation into the back. He denies any fever, chest pain or shortness of breath. He describes the pain as sharp and stabbing. He states that nothing is helping the pain. Review of Systems Review of Systems Constitutional: Denies fever or chills [] Respiratory: Denies cough or shortness of breath [] Cardiovascular: No additional information not addressed in HPI [] GI: Complains of upper abdominal pain with nausea and vomiting. Denies diarrhea [] : Denies dysuria or hematuria [] Musculoskeletal: Denies back pain or joint pain [] All other systems were reviewed and found to be within normal limits, except as documented in this note. Current Medications Current Medications Current Medications Medications (Trade) Dose Ordered Sig/Deny Start Time Stop Time Status Last Admin Dose Admin Diphenhydramine HCl (Benadryl) 25 mg 1X ONCE 07/29/18 22:15 07/29/18 22:16 DC 07/29/18 22:22 25 MG Fentanyl Citrate (Fentanyl 2ml Vial) 25 mcg PRN Q15MIN PRN 07/29/18 21:15 07/30/18 21:14 07/29/18 21:30 25 MCG Info (CONTRAST GIVEN -- Rx MONITORING) 1 each PRN DAILY PRN 07/29/18 22:30 07/31/18 22:29 Iohexol (Omnipaque 300 Mg/ml) 75 ml 1X ONCE 07/29/18 22:30 07/29/18 22:31 DC 07/29/18 22:32 75 ML Metoclopramide HCl (Reglan Vial) 10 mg 1X ONCE 07/29/18 22:15 07/29/18 22:16 DC 07/29/18 22:22 10 MG Morphine Sulfate (Morphine Sulfate) 4 mg 1X ONCE 07/29/18 22:15 07/29/18 22:16 DC 07/29/18 22:22 4 MG Ondansetron HCl (Zofran) 4 mg 1X ONCE 07/29/18 21:45 07/29/18 21:46 DC 07/29/18 21:29 4 MG Pantoprazole Sodium (PROTONIX VIAL for IV PUSH) 40 mg 1X ONCE 07/29/18 21:45 07/29/18 21:46 DC 07/29/18 21:29 40 MG Sodium Chloride 1,000 ml @ 1,000 mls/hr Q1H 07/29/18 21:08 07/29/18 22:07 DC 07/29/18 21:28 1,000 MLS/HR Allergies Allergies Allergies Coded Allergies Type Severity Reaction Last Updated Verified No Known Drug Allergies 06/30/14 No Physical Exam Physical Exam Constitutional: Well developed, well nourished, no acute distress, non-toxic appearance. [] HENT: Normocephalic, atraumatic, bilateral external ears normal, oropharynx con[address], no oral exudates, nose normal. [] Eyes: PERRLA, EOMI, conjunctiva normal, no discharge. [] Neck: Normal range of motion, no tenderness, supple, no stridor. [] Cardiovascular: Regular rate and rhythm[] Lungs & Thorax: Bilateral breath sounds clear to auscultation [] Abdomen: Bowel sounds normal, soft with reported tenderness to palpation in the epigastric region. [] Skin: Warm, dry, no erythema, no rash. [] Extremities: No tenderness, no cyanosis, no clubbing, ROM intact, no edema. [] Neurologic: Alert and oriented X 3, no focal deficits noted. [] Current Patient Data Vital Signs Vital Signs Date Time Temp Pulse Resp B/P (MAP) Pulse Ox O2 Delivery O2 Flow Rate FiO2 07/29/18 22:22 16 98 Room Air 07/29/18 22:13 76 124/60 (81) 07/29/18 20:30 99.0 99.0 Lab Values Laboratory Tests Test 07/29/18 21:40 White Blood Count 12.0 x10^3/uL (4.0-11.0) H Red Blood Count 4.86 x10^6/uL (4.30-5.70) Hemoglobin 15.7 g/dL (13.0-17.5) Hematocrit 48.4 % (39.0-53.0) Mean Corpuscular Volume 100 fL (79-100) Mean Corpuscular Hemoglobin 32 pg (25-35) Mean Corpuscular Hemoglobin Concent 32 g/dL (31-37) Red Cell Distribution Width 14.3 % (11.5-14.5) Platelet Count 177 x10^3/uL (140-400) Neutrophils (%) (Auto) 83 % (31-73) H Lymphocytes (%) (Auto) 14 % (24-48) L Monocytes (%) (Auto) 3 % (0-9) Eosinophils (%) (Auto) 0 % (0-3) Basophils (%) (Auto) 0 % (0-3) Neutrophils # (Auto) 10.0 x10^3uL (1.8-7.7) H Lymphocytes # (Auto) 1.7 x10^3/uL (1.0-4.8) Monocytes # (Auto) 0.3 x10^3/uL (0.0-1.1) Eosinophils # (Auto) 0.0 x10^3/uL (0.0-0.7) Basophils # (Auto) 0.0 x10^3/uL (0.0-0.2) Sodium Level 141 mmol/L (136-145) Potassium Level 3.7 mmol/L (3.5-5.1) Chloride Level 102 mmol/L (98-107) Carbon Dioxide Level 23 mmol/L (21-32) Anion Gap 16 (6-14) H Blood Urea Nitrogen 12 mg/dL (8-26) Creatinine 1.3 mg/dL (0.7-1.3) Estimated GFR (Cockcroft-Gault) 75.6 BUN/Creatinine Ratio 9 (6-20) Glucose Level 122 mg/dL (70-99) H Calcium Level 10.4 mg/dL (8.5-10.1) H Total Bilirubin 0.7 mg/dL (0.2-1.0) Aspartate Amino Transferase (AST) 18 U/L (15-37) Alanine Aminotransferase (ALT) 24 U/L (16-63) Alkaline Phosphatase 76 U/L (46-116) Total Protein 8.3 g/dL (6.4-8.2) H Albumin 4.7 g/dL (3.4-5.0) Albumin/Globulin Ratio 1.3 (1.0-1.7) Lipase 52 U/L (73-393) L Laboratory Tests 07/29/18 21:40 Laboratory Tests 07/29/18 21:40 EKG EKG [] Radiology/Procedures Radiology/Procedures [] Impressions: PROCEDURE: CT ABD PELV W/ IV CONTRST ONLY EXAM: Abdomen and pelvis CT with intravenous contrast. HISTORY: Pain. Ulcer. TECHNIQUE: Computed tomographic images of the abdomen and pelvis were obtained following the administration of 75 cc Omnipaque 300 intravenous contrast. Multiplanar reformatting was performed. COMPARISON: 04/30/2018. FINDINGS: Evaluation of the lower thorax demonstrates no infiltrate or pleural effusion. The heart is normal in size. No suspicious hepatic lesion is seen. There is mild fatty infiltration of the liver along the falciform ligament. The gallbladder, pancreas, spleen and adrenal glands are unremarkable. The kidneys are unremarkable. The appendix is surgically absent. There is mild mucosal thickening involving the colon likely due to relative under distention. There is no convincing pericolonic stranding to suggest colitis. There is no lymphadenopathy. There is gastric wall thickening likely due to relative under distention. The bladder is unremarkable. There is an incidental transitional lumbosacral segment. IMPRESSION: 1. Gastric wall thickening. This is likely due to underdistention. Given a history of ulcers, the possibility of gastritis not excluded. 2. Mild colonic wall thickening likely due to underdistention. There is no convincing acute colitis. Electronically signed by: Jackie Oseguera MD (07/29/2018 10:44 PM) [facility] Course & Med Decision Making Course & Med Decision Making Pertinent Labs and Imaging studies reviewed. (See chart for details) [] Dragon Disclaimer Dragon Disclaimer This electronic medical record was generated, in whole or in part, using a voice recognition dictation system. Departure Departure Impression: Primary Impression: Abdominal pain Additional Impression: Gastritis Disposition: 01 HOME, SELF-CARE Condition: STABLE Referrals: NO PCP (PCP) Patient Instructions: Abdominal Pain, Gastritis, Adult Scripts Ondansetron Hcl (ZOFRAN) 4 Mg Tablet 4 MG PO PRN TID PRN for NAUSEA, #15 nausea/vomiting Prov: KATARZYNA ROBERTSON Jr. DO 07/29/18 Tramadol Hcl (TRAMADOL HCL) 50 Mg Tablet 50 MG PO Q6HRS PRN for PAIN, #12 TAB Prov: KATARZYNA ROBERTSON Jr. DO 07/29/18 Omeprazole (OMEPRAZOLE) 40 Mg Capsule.dr 1 CAP PO DAILY, #30 CAP Prov: KATARZYNA ROBERTSON Jr. DO 07/29/18 Problem Qualifiers Primary Impression: Abdominal pain Abdominal location: epigastric Qualified Codes: R10.13 - Epigastric pain Additional Impression: Gastritis Gastritis type: unspecified gastritis Chronicity: unspecified Gastritis bleeding: without bleeding Qualified Codes: K29.70 - Gastritis, unspecified, without bleeding KATARZYNA ROBERTSON Jr. DO July 29, 2018 22:56
[2018-07-29] MEDS ORDERED: ONDA4TAB7 PO (23:08)
== END 2018-07-29 23:42 | disposition home or self-care (01) ==
LOC: ER 20:21
DX: K29.60 Other gastritis without bleeding (principal); K21.9 Gastro-esophageal reflux disease without esophagitis
CPT/HCPCS: 36415; 74177; 80053; 83690; 85025; 96361; 96374; 96375; 99285; C9113; J1200; J2270; J2405; J2765; J3010; J7030; Q9967

== ENCOUNTER 2020-04-19 18:53 | Emergency (ER) | payer OTHER ==
[~2020-04-19] VITALS: Ht 177.8 cm; Wt 90.1 kg
[~2020-04-19 18:53] MED LIST changes: -CAPS42.513 TP; +CAPS42.514 TP; +OMEP40CA45 PO; +TRAM50TA PO
--- NOTE | 2020-04-19 19:14 | PHYS DOC ---
Past Medical History Past Medical History: GERD, Other Additional Past Medical Histor: gastric ulcers Past Surgical History: Appendectomy Smoking Status: Never Smoker Alcohol Use: None Drug Use: Marijuana General Adult EDM: Chief Complaint: ABDOMINAL PAIN HPI: HPI: Patient is a 39 year old male who presents with since 1430 this afternoon patient began having bilateral lower abdominal pain that is a cramping type pain that is continuous and not letting up. He states is nonradiating. He states he vomited couple times that was bile. Patient states his last bowel movement was yesterday and it was normal for him. Patient rates his pain a 10 out of 10 and he is writhing in pain. Patient states he took Tylenol at 1500 today because his temperature was right at 100. Patient has a history of gastric ulcers, GERD, appendectomy. Review of Systems: Review of Systems: Constitutional: + fever or chills. [] Eyes: Denies change in visual acuity. [] HENT: Denies nasal congestion or sore throat. [] Respiratory: Denies cough or shortness of breath. [] Cardiovascular: Denies chest pain or edema. [] GI: + abdominal pain, +nausea, +vomiting, denies bloody stools or diarrhea. [] : Denies dysuria. [] Musculoskeletal: Denies back pain or joint pain. [] Integument: Denies rash. [] Neurologic: Denies headache, focal weakness or sensory changes. [] Endocrine: Denies polyuria or polydipsia. [] Lymphatic: Denies swollen glands. [] Psychiatric: Denies depression or anxiety. [] Heart Score: Risk Factors: Risk Factors: DM, Current or recent (<one month) smoker, HTN, HLP, family history of CAD, obesity. Risk Scores: Score 0 - 3: 2.5% MACE over next 6 weeks - Discharge Home Score 4 - 6: 20.3% MACE over next 6 weeks - Admit for Clinical Observation Score 7 - 10: 72.7% MACE over next 6 weeks - Early Invasive Strategies Current Medications: Current Medications Medications (Trade) Dose Ordered Sig/Deny Start Time Stop Time Status Last Admin Dose Admin Fentanyl Citrate (Fentanyl 2ml Vial) 50 mcg 1X ONCE 04/19/20 19:15 04/19/20 19:16 UNV Ondansetron HCl (Zofran) 4 mg 1X ONCE 04/19/20 19:15 04/19/20 19:16 UNV Sodium Chloride 1,000 ml @ 1,000 mls/hr Q1H 04/19/20 19:15 04/19/20 20:14 UNV Allergies: Allergies: Allergies Coded Allergies Type Severity Reaction Last Updated Verified No Known Drug Allergies 06/30/14 No Physical Exam: PE: Constitutional: Well developed, well nourished, no acute distress, non-toxic appearance. [] HENT: Normocephalic, atraumatic, bilateral external ears normal, oropharynx moist, no oral exudates, nose normal. [] Eyes: PERRLA, EOMI, conjunctiva normal, no discharge. [] Neck: Normal range of motion, no tenderness, supple, no stridor. [] Cardiovascular:Heart rate regular rhythm, no murmur [] Lungs & Thorax: Bilateral breath sounds clear to auscultation [] Abdomen: Bowel sounds normal, soft, bilateral lower tenderness, no masses, no pulsatile masses. [] Skin: Warm, dry, no erythema, no rash. [] Back: No tenderness, no CVA tenderness. [] Extremities: No tenderness, no cyanosis, no clubbing, ROM intact, no edema. [] Neurologic: Alert and oriented X 3, normal motor function, normal sensory function, no focal deficits noted. [] Psychologic: Affect normal, judgement normal, mood normal. [] EKG: EKG: [] Radiology/Procedures: Radiology/Procedures: [] Impression: [facility] [address] [facility] [place], [place] [id number] IMAGING REPORT Signed PATIENT: TU MOLINA ACCOUNT: [id number] : 1980 LOCATION: ER AGE: 39 SEX: M EXAM STATUS: REG ER ORD. PHYSICIAN: CARLOTA AGUILAR APRN REASON: Bilateral lower abd pain PROCEDURE: CT ABD PELV W/ IV CONTRST ONLY CT SCAN OF THE ABDOMEN AND PELVIS WITH IV CONTRAST. History: Reason: Bilateral lower abd pain Comparison:July 29, 2018. Procedure: Contiguous axial images of the abdomen and pelvis were performed after the administration of 75 cc of Omni 300 IV contrast. Oral contrast: No. Findings: The gallbladder. Is normal. The appendix has been removed. Liver: Unremarkable Spleen: Unremarkable Pancreas: Unremarkable Adrenal Glands: Unremarkable Kidneys: Unremarkable There is no mass or lymphadenopathy. There is no free air. There is no free fluid. The urinary bladder appears normal. Impression: No acute findings. End impression PQRS Compliance Statement: One or more of the following individualized dose reduction techniques were utilized for this examination: 1. Automated exposure control 2. Adjustment of the mA and/or kV according to patient size 3. Use of iterative reconstruction technique Electronically signed by: Quinten Anguiano III, MD (04/19/2020 8:15 PM) [facility] DICTATED and SIGNED BY: QUINTEN ANGUIANO III, MD DATE: 04/19/[id number] 0 Course & Med Decision Making: Course & Med Decision Making Pertinent Labs and Imaging studies reviewed. (See chart for details) See HPI. Speaks in full complete sentences. Alert and oriented x4. Ambulatory with a steady gait. Abdomen is soft but tender to palpation of bilateral lower quadrants. Skin pink warm and dry. Afebrile here. CT shows no acute findings. Blood work is unremarkable. Patient is unwilling to give urine. Patient is receiving fluids. He is also requesting more pain medication stating that the fentanyl is not working. 2130: Patient is given another dose of fentanyl, Reglan and another liter fluid is started. Patient is told that his CT abdomen pelvis showed no acute findings. 2149: Patient is reassessed and he states that the pain is better but his mouth is very dry. He states he is no longer nauseated. Patient is given ice chips to p.o. challenge. 2204: Patiet has successfully been PO challenged, [] Deon Disclaimer: Deon Disclaimer: This electronic medical record was generated, in whole or in part, using a voice recognition dictation system. Departure Departure Impression: Primary Impression: GERD (gastroesophageal reflux disease) Qualified Codes: K21.9 - Gastro-esophageal reflux disease without esophagitis Additional Impression: Nausea & vomiting Qualified Codes: R11.2 - Nausea with vomiting, unspecified Disposition: 01 DC HOME SELF CARE/HOMELESS Condition: STABLE Referrals: NO PCP (PCP) Patient Instructions: Diet for Gastroesophageal Reflux Disease, Adult, Gastroesophageal Reflux Disease, Adult, Nausea and Vomiting Additional Instructions: Take medications as prescribed. Follow up with a GI doctor. Drink plenty of fluids. Slowly increase your diet. Scripts Metoclopramide Hcl (REGLAN) 10 Mg Tablet 10 MG PO BIDAC, #28 TAB 0 Refills Prov: CARLOTA AGUILAR APRN 04/19/20 Pantoprazole Sodium (PROTONIX) 20 Mg Tablet. 1 TAB PO DAILY, #30 TAB Prov: CARLOTA AGUILAR APRN 04/19/20 CARLOTA AGUILAR APRN Apr 19, 2020 19:14
[2020-04-19] MEDS ORDERED: fentaNYL PF VIAL 100 MCG/2 ML VIAL IVP ONE ×2 (19:15→20:15)
[2020-04-19] MEDS ORDERED: ONDANSETRON PF 4 MG/2 ML VIAL. IVP ONE (19:15)
[2020-04-19] MEDS ORDERED: IV NORMAL SALINE 1000ML BAG 1,000 ML IV SCH (19:15)
[2020-04-19 19:34] LABS: BASO # 0.1 x10^3/uL (0.0-0.2); BASO % 1 % (0-3); EOS % 0 % (0-3); HEMATOCRIT 46.2 % (39.0-53.0); HEMOGLOBIN 15.4 g/dL (13.0-17.5); LYMPH # 1.5 x10^3/uL (1.0-4.8); LYMPH % 11 % (24-48); MEAN CORPUSCULAR HEMOGLOBIN 33 pg (25-35); MEAN CORPUSCULAR HGB CONC 33 g/dL (31-37); MEAN CORPUSCULAR VOLUME 99 fL (79-100); MONO # 0.5 x10^3/uL (0.0-1.1); MONO % 4 % (0-9); NEUT # 11.9 x10^3/uL (1.8-7.7); NEUT % 85 % (31-73); PLATELET COUNT 186 x10^3/uL (140-400); RED BLOOD COUNT 4.64 x10^6/uL (4.30-5.70); RED CELL DISTRIBUTION WIDTH 13.8 % (11.5-14.5)
[2020-04-19 19:44] LABS: CALCIUM 9.9 mg/dL (8.5-10.1); CREATININE 1.2 mg/dL (0.7-1.3); POTASSIUM 4.3 mmol/L (3.5-5.1)
[2020-04-19 19:50] LABS: ALBUMIN 4.3 g/dL (3.4-5.0); ALBUMIN/GLOBULIN RATIO 1.2 (1.0-1.7); TOTAL BILIRUBIN 0.5 mg/dL (0.2-1.0); TOTAL PROTEIN 7.8 g/dL (6.4-8.2)
[2020-04-19] MEDS ORDERED: IOHEXOL 300 MG/ML 100ML VIAL. IV ONE (20:00)
[2020-04-19] MEDS ORDERED: IV NORMAL SALINE 1000ML BAG 1,000 ML IV ONE (20:15)
--- NOTE | 2020-04-19 20:17 | RAD ---
CT SCAN OF THE ABDOMEN AND PELVIS WITH IV CONTRAST. History: Reason: Bilateral lower abd pain Comparison:July 29, 2018. Procedure: Contiguous axial images of the abdomen and pelvis were performed after the administration of 75 cc o f Omni 300 IV contrast. Oral contrast: No. Findings: The gallbladder. Is normal. The appendix has been removed. Liver: Unremarkable Spleen: Unremarkable Pancreas: Unremarkable Adrenal Glands: Unremarkable Kidneys: Unremarkable There is no mass or lymphadenopathy. There is no free air. There is no free fluid. The urinary bladder appears normal. Impression: No acute findings. End impression PQRS Compliance Statement: One or more of the following individualized dose reduction techniques were utilized for this examinat ion: 1. Automated exposure control 2. Adjustment of the mA and/or kV according to patient size 3. Use of iterative reconstruction technique Electronically signed by: Camilo Thomas III, MD (04/19/2020 8:15 PM) [facility]
[2020-04-19] MEDS ORDERED: FAMOTIDINE 20 MG/2 ML VIAL IVP ONE (20:30)
[2020-04-19] MEDS ORDERED: METOCLOPRAMIDE HCL 10 MG/2 ML VIAL. IVP ONE (20:45)
[2020-04-19 21:59] VITALS: BP 139/60
[2020-04-19 22:02] LABS: BILIRUBIN,URINE NEGATIVE (NEG); CLARITY,URINE CLEAR; COLOR,URINE YELLOW; NITRITE,URINE NEGATIVE (NEG); PH,URINE 8.5 (<5.0-8.0); PROTEIN,URINE NEGATIVE (NEG-TRACE); UROBILINOGEN,URINE 0.2 mg/dL (0.2 mg/dL)
[2020-04-19 22:11] LABS: BACTERIA,URINE FEW /HPF (0-FEW)
[2020-04-19] MEDS ORDERED: PANT20TA2 PO (22:12)
[2020-04-19] MEDS ORDERED: METO10TA81 PO (22:12)
== END 2020-04-19 22:20 | disposition home or self-care (01) ==
LOC: ER 18:53
DX: K21.9 Gastro-esophageal reflux disease without esophagitis (principal); R11.2 Nausea with vomiting, unspecified; R10.31 Right lower quadrant pain; R10.32 Left lower quadrant pain; F12.90 Cannabis use, unspecified, uncomplicated; Z90.89 Acquired absence of other organs
CPT/HCPCS: 36415; 74177; 80053; 81001; 83690; 85025; 96361; 96374; 96375; 96376; 99285; J2405; J2765; J3010; J3490; J7030; Q9967